=== PATIENT | male | born 1960 | race Caucasian/White ===

== ENCOUNTER 2018-01-03 15:24 | Observation (INO) ==
[2018-01-03] MEDS ORDERED: Acetaminophen 500 MG Tablet PO PRN (19:13)
[2018-01-03 22:17] LABS: Creatine Kinase 99 U/L (39-308)
[2018-01-03] MEDS: Sod Chloride 0.9% Inj 1,000 ML IV.CONT SCH (22:47)
[2018-01-04] MEDS: Sod Chloride 0.9% Inj 1,000 ML IV.CONT SCH ×2 (08:47→19:28)
[2018-01-04] MEDS ORDERED: amLODIPine 5 MG Tablet PO SCH (09:00)
--- NOTE | 2018-01-04 10:01 | P.HP ---
History of Present Illness Primary Care Physician: Cade Serna MD Chief Complaint: Chest pain History of Present Illness: This is a 57-year-old male with a history of hypertension and obesity. He presents to the emergency department complaining of chest pain. States over the weekend he developed flulike symptoms and took [id number] medications. He complains of headache, nonproductive cough, runny nose and achiness. He has intermittent retrosternal chest tightness that radiated to his right chest yesterday prompting ER evaluation. It is not pleuritic. Denies shortness of breath, palpitations, dizziness and diaphoresis. Patient ruled out for AZ. D-dimer is within normal limits. EKG tracing interpreted by me showing sinus rhythm with incomplete right bundle branch block. He agrees to proceed with stress tests he has risk factors for heart disease. All other systems reviewed negative Review of Systems All other systems reviewed negative except as stated in HPI PMFSH - History History Provided By: Patient - Medical History Medical History: Medical History (Last Reviewed 01/04/18 @ 09:57 by Alejandro Hudson MD) Hypertension - Surgical History Surgical History: Surgical History (Last Reviewed 01/04/18 @ 09:57 by Alejandro Hudson MD) No history of previous surgery - Family History Family History: Family History (Last Updated 01/04/18 @ 09:58 by Alejandro Hudson MD) Other No pertinent family history - Tobacco History Second Hand Smoke Exposure: No Tobacco Use In Past 30 Days: No Smoking Status: Never smoker - Alcohol History How Often Do You Have a Drink Containing Alcohol: Never - Substance Use History Substance History: Past History - Travel History Recent Travel in the [facility] Within the Last 8 Weeks: No Recent Travel Out of the Country Within the Last 8 Weeks: No Medications and Allergies Active Medications: Active Medications Acetaminophen (Tylenol) 500 mg PO Q4H PRN PRN Reason: HEADACHE Amlodipine Besylate (Norvasc) 5 mg PO DAILY [facility] Last Admin: 01/04/18 08:52 Dose: 5 mg Clonidine HCl (Catapres) 0.1 mg PO Q6H PRN PRN Reason: SYS BP GREATER THAN 160 MMHG Enalaprilat (Vasotec Inj) 1.25 mg IV.PUSH Q6H PRN PRN Reason: SEE LABEL COMMENTS Sodium Chloride (Ns Inj) 1,000 mls @ 100 mls/hr IV.CONT .Q10H [facility] Last Admin: 01/04/18 08:47 Dose: 100 mls/hr Ondansetron HCl (Zofran Inj) 4 mg IV.PUSH Q6H PRN PRN Reason: NAUSEA Sodium Chloride (Ns Flush) 2 ml IV.FLUSH BID [facility] Last Admin: 01/03/18 22:48 Dose: Not Given Sodium Chloride (Ns Flush) 2 ml IV.FLUSH PRN PRN PRN Reason: FLUSH AFTER USING IV ACCESS Allergies Allergy/AdvReac Type Severity Reaction Status Date / Time penicillin G Allergy Severe Hives Verified 01/03/18 15:55 Penicillins Allergy Rash Verified 01/03/18 15:55 Home Medications Medication Instructions Recorded Confirmed Type amlodipine 5 mg PO DAILY 01/03/18 01/03/18 History metoprolol succinate 50 mg PO DAILY 01/03/18 01/03/18 History Exam Vital signs: Vital Signs 01/03/18 20:45 01/04/18 00:00 01/04/18 04:00 Temperature 96.9 F L 97.8 F 97.8 F Pulse Rate 50 L 52 L 53 L Respiratory Rate 20 20 20 Blood Pressure 177/83 H 147/83 H 148/73 H Pulse Oximetry 97 97 96 01/04/18 08:00 Temperature 97.2 F L Pulse Rate 53 L Respiratory Rate 20 Blood Pressure 162/74 H Pulse Oximetry 96 Intake & Output 01/03/18 01/04/18 01/04/18 18:59 06:59 18:59 Intake Total 60 / 60 1000 / 1000 Balance 60 / 60 1000 / 1000 Weight 121.7 kg Intake: IV 1000 / 1000 NS Inj 1,000 ML @ 100 mls/hr IV 1000 / 1000 .CONT .Q10H [facility] Rx#:[id number] Oral 60 / 60 Other: # Voids 2 Weight On Admission 121.7 kg Narrative: GENERAL: Well-developed, obese in no distress SKIN: Warm and dry. HEAD: Atraumatic. Normocephalic. EYES: Pupils equal and round. No scleral icterus. No injection or drainage. ENT: No nasal bleeding or discharge. Mucous membranes pink and moist. NECK: Trachea midline. No JVD. CARDIOVASCULAR: Regular rate and rhythm. No chest wall tenderness RESPIRATORY: No accessory muscle use. Clear to auscultation. Breath sounds equal bilaterally. GASTROINTESTINAL: Abdomen soft, non-tender, nondistended. MUSCULOSKELETAL: Extremities without clubbing, cyanosis, or edema. No obvious deformities. NEUROLOGICAL: Awake and alert. No obvious cranial nerve deficits. Motor grossly within normal limits. Five out of 5 muscle strength in the arms and legs. Normal speech. PSYCHIATRIC: Appropriate mood and affect; insight and judgment normal. Results - Labs Labs: Laboratory Results - last 24 hr 01/03/18 21:37 Total Creatine Kinase 99 Troponin I Less than 0.02 L Caprini VTE Risk Assessment Caprini VTE Risk Assessment: No/Low Risk (score <= 1) Caprini Risk Assessment Model: Point Value = 1 Point Value = 2 Point Value = 3 Point Value = 5 Age 41-60 Minor surgery BMI > 25 kg/m2 Swollen legs Varicose veins or History of unexplained or recurrent spontaneous Oral contraceptives or hormone replacement Sepsis (< 1 month) Serious lung disease, including pneumonia (< 1 month) Abnormal pulmonary function Acute myocardial infarction Congestive heart failure (< 1 month) History of inflammatory bowel disease Medical patient at bed rest Age 61-74 Arthroscopic surgery Major open surgery (> 45 min) Laparoscopic surgery (> 45 min) Malignancy Confined to bed (> 72 hours) Immobilizing plaster cast Central venous access Age >= 75 History of VTE Family history of VTE Factor V Leiden Prothrombin [id number] Lupus anticoagulant Anticardiolipin antibodies Elevated serum homocysteine Heparin-induced thrombocytopenia Other congenital or acquired thrombophilia Stroke (< 1 month) Elective arthroplasty Hip, pelvis, or leg fracture Acute spinal cord injury (< 1 month) Prophylaxis Regimen: Total Risk Factor Score Risk Level Prophylaxis Regimen 0-1 Low Early ambulation 2 Moderate Order ONE of the following: *Sequential Compression Device (SCD) *Heparin 5000 units SQ BID 3-4 Higher Order ONE of the following medications: *Heparin 5000 units SQ TID *Enoxaparin/Lovenox 40 mg SQ daily (WT < 150 kg, CrCl > 30 mL/min) *Enoxaparin/Lovenox 30 mg SQ daily (WT < 150 kg, CrCl > 10-29 mL/min) *Enoxaparin/Lovenox 30 mg SQ BID (WT < 150 kg, CrCl > 30 mL/min) AND/OR *Sequential Compression Device (SCD) 5 or more Highest Order ONE of the following medications: *Heparin 5000 units SQ TID (Preferred with Epidurals) *Enoxaparin/Lovenox 40 mg SQ daily (WT < 150 kg, CrCl > 30 mL/min) *Enoxaparin/Lovenox 30 mg SQ daily (WT < 150 kg, CrCl > 10-29 mL/min) *Enoxaparin/Lovenox 30 mg SQ BID (WT < 150 kg, CrCl > 30 mL/min) AND *Sequential Compression Device (SCD) Assessment and Plan - Plan This is a 57-year-old male with a history of hypertension and obesity. He presents with chest pain. Already ruled out for AZ. D-dimer is within normal limits. EKG with sinus rhythm with incomplete right bundle branch block. A typical chest pain with risk factor for CAD. He ruled out for AZ. Status post aspirin. For stress test today. If negative patient can be discharged home. Follow-up lipid profile Hypertension, not well controlled. Continue Norvasc and restart beta-kendall after stress test. Obesity. Counseled. Weight reduction DVT prophylaxis with SCD Discharge Planning: Discharge patient to home if stress test negative and lipid profile reviewed Condition on discharge: Improved Regular Diet as tolerated Ad Amalia activity Rx written: See med rec Follow-up with primary care physician
--- NOTE | 2018-01-04 14:53 | NM ---
EXAM DATE: 01/04/2018 1:31 PM EDT AGE/SEX: 57 years / Male INDICATIONS: Angina. Right bundle branch block Substernal chest pain. CLINICAL DATA: This is the patient's initial encounter. Patient reports that signs and symptoms have been present for 1 day and indicates a pain score of 4/10. MEDICAL/SURGICAL HISTORY: Hypertension. None. COMPARISON: No prior exams available for comparison. DOSE: 11 mCi Tc 99m Myoview at rest 35 mCi [id number] at stress REST HEART RATE: 61 BPM TARGET HEART RATE: 139 BPM MAX HEART RATE: 143 BPM REST BLOOD PRESSURE: 158/74 mmHg MAX BLOOD PRESSURE: 190/75 mmHg EJECTION FRACTION: 56 % TECHNIQUE: The patient underwent upright treadmill exercise in the chest pain center. Continuous EC G tracing was monitored during stress. Gated SPECT imaging was performed after stress, and conventio nal SPECT imaging was performed at rest. The examination was performed on a SPECT/CT scanner, both a ttenuation-corrected and non-corrected datasets were reviewed. FINDINGS: Distribution: The maximum perfused segment at stress is in the anterior wall. Perfusion: The pattern of perfusion at stress is within normal limits. Gated Study: There are intact wall motion and wall thickening without hypokinetic or dyskinetic segme nts. The ejection fraction is calculated at 56%. RISK CATEGORY: Low (<1% Annual Motality Rate) CONCLUSION: 1. Unremarkable myocardial perfusion study. Electronically signed by: Blaine Perera MD 01/04/2018 2:52 PM EDT
--- NOTE | 2018-01-04 15:57 | ECG ---
Date Performed: 01/03/2018 Time Performed: 21:29:03 PTAGE: 57 years EKG: SINUS BRADYCARDIA INCOMPLETE RIGHT BUNDLE BRANCH BLOCK BORDERLINE ECG PREVIOUS TRACING 01/03/2018 @ 18.39 Since the previous tracing, no significant change no ning DOCTOR: Torrey Luna Interpretating Date/Time 01/04/2018 15:55:49
[2018-01-04 16:16] VITALS: BP 146/74; PULSE 59; RESP 18; TEMP 96.5; O2SAT 95
--- NOTE | 2018-01-05 07:02 | TR ---
Date Performed: 01/04/2018 Time Performed: 14:04:52 DOCTOR: Skyla Driscoll DRUG LIST: CLINICAL HISTORY: CHEST PAIN REASON FOR TEST: Chest pain REASON FOR ENDING: Patient reached target heart rate OBSERVATION: Chest Pain: None Arrhythmia: None CONCLUSION: Patien tolerated FATOUMATA protocol with Total Exercise Time=5:39 Maximum HT=240 % Max H R Achieved=87.0% Maximum SF=227/90, testing stopped secondary to goals acheived, Tracer injected. Dur ing peak exercsie, patient was asymptomatic, quick upsloping St segments. no significant ST depressio ns. HR and BP returned to baseline, Further perfusion study to be performed. No ischemia on ETT COMMENTS: No ischemia on ETT
[2018-01-05 17:46] LABS: Chol/HDL Ratio 5.45 Ratio
== END 2018-01-04 17:55 | disposition home or self-care (01) ==
LOC: PHEDDLT 20:20 → PH3 20:20
PROVIDERS: ADMIT Hospitalist; ATTEND Internal Medicine